=== PATIENT | male | born 1985 | race Caucasian/White ===

== ENCOUNTER 2018-12-17 07:04 | Emergency (ER) | payer OTHER ==
[2018-12-17] MEDS: morphine 4 MG/ML VIAL IV (07:28)
[2018-12-17] MEDS: KETOROLAC 30 MG INJ IV (07:28)
[2018-12-17] MEDS: ONDANSETRON 4 MG INJ IV ×2 (07:28→08:48)
[2018-12-17] MEDS: FAMOTIDINE 20 MG INJ IV (07:28)
[2018-12-17] MEDS: SOD CHLORIDE 0.9% 1,000 ML IV (07:29)
[2018-12-17 07:40] LABS: ADD MAN DIFF? NO
[2018-12-17 07:45] LABS: WHITE BLOOD COUNT 5.8 10^3/ul (4.8-10.8)
[2018-12-17 07:46] LABS: BASOPHIL # 0.1 10^3/ul (0.0-0.1); BASOPHILS % 0.9 % (0.0-2.0); EOSINOPHILS # 0.4 10^3/ul (0.0-0.5); EOSINOPHILS % 7.5 % (0.0-7.0); HEMATOCRIT 48.7 % (42.0-52.0); HEMOGLOBIN 16.4 g/dl (14.0-18.0); LYMPHOCYTES # 1.8 10^3/ul (0.8-2.9); LYMPHOCYTES % 30.7 % (15.0-51.0); MEAN CORPUSCULAR HEMOGLOBIN 31.8 pg (29.0-33.0); MEAN CORPUSCULAR HGB CONC 33.7 g/dl (32.0-37.0); MEAN CORPUSCULAR VOLUME 94.6 fl (82.0-101.0); MEAN PLATELET VOLUME 9.9 fl (7.4-10.4); MONOCYTE # 0.6 10^3/ul (0.3-0.9); MONOCYTES % 9.5 % (0.0-11.0); NEUTROPHILS % 51.1 % (39.0-77.0); PLATELET COUNT 229 10^3/UL (140-415); RED BLOOD COUNT 5.15 10^6/ul (4.70-6.10); RED CELL DISTRIBUTION WIDTH 11.8 % (11.5-14.5)
[2018-12-17] MEDS: morphine 2 MG INJ IV (07:51)
[2018-12-17 08:02] LABS: ALANINE AMINOTRANSFERASE 25 IU/L (13-69); ALBUMIN 4.9 g/dl (3.3-4.9); ALBUMIN/GLOBULIN RATIO 1.44; ALKALINE PHOSPHATASE 61 IU/L (42-121); ANION GAP 7 (5-13); ASPARTATE AMINO TRANSFERASE 28 IU/L (15-46); BILIRUBIN,INDIRECT 0.6 mg/dl (0-1.1); BILIRUBIN,TOTAL 0.6 mg/dl (0.2-1.3); BLOOD UREA NITROGEN 15 mg/dl (7-20); CARBON DIOXIDE 31 mmol/L (21-31); CHLORIDE 102 mmol/L (97-110); CREATININE 0.98 mg/dl (0.61-1.24); Estimated GFR > 60 mL/min (>60); GLUCOSE 112 mg/dl (70-220); LIPASE 418 U/L (23-300); SODIUM 140 mmol/L (135-144); TOTAL PROTEIN 8.3 g/dl (6.1-8.1)
[2018-12-17] MEDS: DICYCLOMINE 10 MG CAP PO (08:17)
[2018-12-17] MEDS: SOD CHLORIDE 0.9% 100 ML (08:30)
[2018-12-17] MEDS: IOHEXOL 300MG/ML 150 ML BTL (08:30)
[2018-12-17] MEDS: HYDROmorphONE 2 MG/ML SYG IV (08:48)
== END 2018-12-17 09:49 | disposition home or self-care (01) ==
LOC: FTE 09:49
DX: R10.84 Generalized abdominal pain (principal)
CPT/HCPCS: 36415; 74177; 76705; 80053; 83690; 85025; 96361; 96374; 96375; 96376; 99285-25

== ENCOUNTER 2018-12-21 16:35 | Emergency (ER) | payer OTHER ==
[2018-12-21] MEDS: FAMOTIDINE 20 MG TAB PO (17:05)
[2018-12-21] MEDS: LIDOCAINE/MYLANTA 40 ML BTL PO (17:05)
[2018-12-21] MEDS: ONDANSETRON (ODT) 4 MG TAB ODT (17:05)
[2018-12-21] MEDS: KETOROLAC 30 MG INJ IM (17:06)
[2018-12-21 17:15] LABS: ADD MAN DIFF? NO
[2018-12-21 17:16] LABS: WHITE BLOOD COUNT 7.9 10^3/ul (4.8-10.8)
[2018-12-21 17:16] LABS: BASOPHILS % 0.5 % (0.0-2.0); EOSINOPHILS # 0.1 10^3/ul (0.0-0.5); EOSINOPHILS % 1.5 % (0.0-7.0); HEMATOCRIT 46.3 % (42.0-52.0); LYMPHOCYTES # 1.3 10^3/ul (0.8-2.9); LYMPHOCYTES % 16.3 % (15.0-51.0); MEAN CORPUSCULAR HEMOGLOBIN 32.1 pg (29.0-33.0); MEAN CORPUSCULAR HGB CONC 34.6 g/dl (32.0-37.0); MEAN PLATELET VOLUME 9.6 fl (7.4-10.4); MONOCYTE # 0.6 10^3/ul (0.3-0.9); NEUTROPHIL # 5.8 10^3/ul (1.6-7.5); NEUTROPHILS % 73.3 % (39.0-77.0); PLATELET COUNT 229 10^3/UL (140-415); RED BLOOD COUNT 4.98 10^6/ul (4.70-6.10); RED CELL DISTRIBUTION WIDTH 11.9 % (11.5-14.5)
[2018-12-21 17:48] LABS: ALANINE AMINOTRANSFERASE 30 IU/L (13-69); ALBUMIN/GLOBULIN RATIO 1.42; ALKALINE PHOSPHATASE 44 IU/L (42-121); ANION GAP 11 (5-13); ASPARTATE AMINO TRANSFERASE 26 IU/L (15-46); BILIRUBIN,INDIRECT 0.6 mg/dl (0-1.1); BILIRUBIN,TOTAL 0.6 mg/dl (0.2-1.3); BLOOD UREA NITROGEN 16 mg/dl (7-20); CALCIUM 10.2 mg/dl (8.4-10.2); CARBON DIOXIDE 26 mmol/L (21-31); CHLORIDE 98 mmol/L (97-110); Estimated GFR > 60 mL/min (>60); GLUCOSE 105 mg/dl (70-220); LIPASE 60 U/L (23-300); POTASSIUM 4.5 mmol/L (3.5-5.1); SODIUM 135 mmol/L (135-144); TOTAL PROTEIN 8.5 g/dl (6.1-8.1)
[2018-12-21] MEDS: SOD CHLORIDE 0.9% 1,000 ML IV (18:10)
[2018-12-21] MEDS: METOCLOPRAMIDE 10 MG INJ IV (18:10)
[2018-12-21] MEDS: HYDROmorphONE 2 MG/ML SYG IV (18:35)
== END 2018-12-21 20:06 | disposition home or self-care (01) ==
LOC: FTE 16:35
DX: R10.13 Epigastric pain (principal); R11.10 Vomiting, unspecified
CPT/HCPCS: 36415; 80053; 83690; 85025; 96361; 96372; 96374; 96375; 99284-25